=== PATIENT | male | born 1965 | race Caucasian/White ===

== ENCOUNTER 2019-02-27 04:43 | Inpatient (IN) ==
[2019-02-27] MEDS ORDERED: ONDANSETRON 4 MG/2 ML VIAL IV STA (05:22)
[2019-02-27] MEDS ORDERED: MORPHINE 4 MG/1 ML VIAL IV STA (05:22)
[2019-02-27] MEDS ORDERED: PANTOPRAZOLE 40 MG VIAL IV STA (05:22)
[2019-02-27] MEDS ORDERED: THIAMINE INJ 100 MG, FOLIC ACID INJ 1 MG, MAGNESIUM SULF INJ 2 GM, MULTIVITAMIN INJ 10 ... IV ONE (05:23)
[2019-02-27 05:43] LABS: Basophils % 0.2 % (0.0-0.8); Eosinophils % 0.6 % (0.00-10.9); Hematocrit 40.6 VOL% (42.0-52.0); Hemoglobin 13.9 GM/DL (14.0-18.0); Immature Granulocytes % 0.6 %; Immature Granulocytes Absolute 0.04 #; Lymphocytes # 0.5 10*3/uL (1.4-4.0); Lymphocytes % 7.8 % (21.2-54.2); Mean Corpuscular HGB Conc 34.2 GM/DL (32-36); Mean Corpuscular Volume 98.5 FL (87-102); Mean Platelet Volume 10.4 FL (9.6-12.0); Monocytes % 10.9 % (1.7-12.7); Neutrophils % 79.9 % (38.7-73.9); Platelet Count 101 T/CUMM (130-400); Red Blood Count 4.12 MC/CUMM (3.8-5.5); Red Cell Distribution Width 12.4 % (9.3-17.3); White Blood Count 6.4 T/CUMM (4-12)
[2019-02-27 05:58] LABS: Alanine Aminotransferase 64 U/L (16-61); Albumin 3.2 G/DL (3.4-5.0); Alkaline Phosphatase 133 U/L (45-117); Amylase 214 U/L (25-115); Aspartate Amino Transferase 46 U/L (0-37); Blood Urea Nitrogen 127 MG/DL (7-18); Calcium 9.2 MG/DL (8.5-10.1); Estimated Glom Filtration Rate 3 ML/MIN; Glucose 131 MG/DL (74-106); Osmolality,Calculated 299.1 MOS/KG (273-304)
[2019-02-27] MEDS ORDERED: HYDROmorphone 2 MG/1 ML VIAL IV STA (06:22)
[2019-02-27] MEDS ORDERED: HYDROmorphone 2 MG/1 ML VIAL IV ONE (08:30)
[2019-02-27] MEDS ORDERED: HYDROmorphone 2 MG/1 ML VIAL IM ONE (08:50)
[2019-02-27] MEDS ORDERED: PNEUMOCOCCAL VACCINE (23 VALENT) 0.5 ML VIAL IM ONE (08:57)
[2019-02-27] MEDS ORDERED: LORazepam 2 MG/1 ML VIAL IV ONE (10:00)
[2019-02-27 10:02] LABS: Apearance,Urine CLEAR (Clear); Bilirubin,Urine Negative (Negative); Blood, Urine Small mg/dL (Negative); Glucose,Urine (UA) 50 mg/dL (Negative); Ketones,Urine Negative (Negative); Mucus,Urine Occasional /LPF (Occasional); Nitrite,Urine Negative (Negative); Protein,Urine 100 MG/DL; RBC,Urine 8 /HPF (0-4); Urine Color Yellow (Yellow); Urine Specific Gravity 1.011 (1.001-1.035); Urine Urobilinogen < 2.0 EU/DL (0.2-1.0); WBC,Urine 4 /HPF (0-6)
[2019-02-27] MEDS ORDERED: HALOPERIDOL 5 MG/ML AMP IV PRN (11:14)
[2019-02-27] MEDS ORDERED: SODIUM CHLORIDE 0.9% 1,000 ML IV SCH (11:30)
[2019-02-27] MEDS: PANTOPRAZOLE 40 MG VIAL IV SCH ×2 (11:34→20:28)
[2019-02-27] MEDS: LORazepam 2 MG/1 ML VIAL IV PRN (11:34)
[2019-02-27] MEDS: chlordiazePOXIDE 25 MG CAPSULE PO PRN (11:34)
[2019-02-27] MEDS: SODIUM BICARB INJ 100 MEQ in DEXTROSE 5% NACL 0.45% 1,000 ML IV SCH (16:12)
[2019-02-27] MEDS: VALSARTAN 160 MG TABLET PO SCH (16:12)
[2019-02-27] MEDS: PARoxetine 20 MG TABLET PO SCH (16:13)
[2019-02-27] MEDS: LEVOTHYROXINE 50 MCG TABLET PO SCH (16:16)
[2019-02-27] MEDS: MORPHINE 4 MG/1 ML VIAL IV PRN ×2 (16:23→20:29)
[2019-02-27] MEDS: busPIRone 15 MG TABLET PO SCH (20:28)
[2019-02-27] MEDS ORDERED: hydrALAZINE 20 MG/1 ML VIAL IV PRN (21:31)
[2019-02-28] MEDS: SODIUM BICARB INJ 100 MEQ in DEXTROSE 5% NACL 0.45% 1,000 ML IV SCH ×3 (01:52→19:35)
[2019-02-28] MEDS: MORPHINE 4 MG/1 ML VIAL IV PRN ×2 (04:14→08:54)
[2019-02-28] MEDS: LEVOTHYROXINE 50 MCG TABLET PO SCH (05:33)
[2019-02-28 06:03] LABS: Basophils % 0.2 % (0.0-0.8); Eosinophils % 0.2 % (0.00-10.9); Hematocrit 38.1 VOL% (42.0-52.0); Hemoglobin 12.9 GM/DL (14.0-18.0); Immature Granulocytes Absolute 0.05 #; Lymphocytes # 0.3 10*3/uL (1.4-4.0); Lymphocytes % 4.9 % (21.2-54.2); Mean Corpuscular HGB Conc 33.9 GM/DL (32-36); Mean Corpuscular Volume 99.5 FL (87-102); Mean Platelet Volume 10.3 FL (9.6-12.0); Monocytes % 10.9 % (1.7-12.7); Neutrophils % 82.8 % (38.7-73.9); Platelet Count 75 T/CUMM (130-400); Red Blood Count 3.83 MC/CUMM (3.8-5.5); Red Cell Distribution Width 12.5 % (9.3-17.3); White Blood Count 5.1 T/CUMM (4-12)
[2019-02-28 06:28] LABS: Albumin 2.9 G/DL (3.4-5.0); Bilirubin,Total 0.6 MG/DL (0.2-1.0); Calcium 8.6 MG/DL (8.5-10.1); Osmolality,Calculated 298.9 MOS/KG (273-304); Total Protein 7.2 G/DL (6.4-8.3)
[2019-02-28 06:41] LABS: Anisocytosis 1+; Band Neutrophils 9 % (0-10); Lymphocytes 6 % (20-55); Macrocytosis 1+; Platelet Estimate Decreased; Segmented Neutrophils 69 % (50-85); Total Cells Counted 100
[2019-02-28] MEDS: PANTOPRAZOLE 40 MG VIAL IV SCH (08:54)
[2019-02-28] MEDS: PARoxetine 20 MG TABLET PO SCH (08:55)
[2019-02-28] MEDS: busPIRone 15 MG TABLET PO SCH ×2 (08:55→20:12)
[2019-02-28] MEDS: VALSARTAN 160 MG TABLET PO SCH (08:55)
[2019-02-28] MEDS: LORazepam 2 MG/1 ML VIAL IV PRN (10:57)
[2019-02-28 11:44] LABS: Amorphous Crystals,Urine Occasional /HPF (Few); Apearance,Urine CLEAR (Clear); Bilirubin,Urine Negative (Negative); Blood, Urine Small mg/dL (Negative); Glucose,Urine (UA) 50 mg/dL (Negative); Ketones,Urine Negative (Negative); Nitrite,Urine Negative (Negative); Protein,Urine 100 MG/DL; RBC,Urine 5 /HPF (0-4); Urine Color Yellow (Yellow); Urine Specific Gravity 1.014 (1.001-1.035); Urine Urobilinogen < 2.0 EU/DL (0.2-1.0); WBC,Urine 4 /HPF (0-6)
[2019-02-28] MEDS: MULTIVITAMIN (CENTRUM) TABLET PO SCH (12:51)
[2019-02-28] MEDS: THIAMINE 200 MG/2 ML VIAL IV SCH ×2 (15:38→21:31)
[2019-02-28] MEDS ORDERED: CALCIUM GLUCONATE 1,000 MG in SODIUM CHLORIDE 0.9% 100 ML IV ONE (17:51)
[2019-03-01] MEDS: SODIUM BICARB INJ 100 MEQ in DEXTROSE 5% NACL 0.45% 1,000 ML IV SCH ×3 (04:49→22:58)
[2019-03-01] MEDS: LEVOTHYROXINE 50 MCG TABLET PO SCH (05:23)
[2019-03-01] MEDS: THIAMINE 200 MG/2 ML VIAL IV SCH ×3 (05:23→22:51)
[2019-03-01] MEDS: MORPHINE 4 MG/1 ML VIAL IV PRN (05:34)
[2019-03-01] MEDS: LORazepam 2 MG/1 ML VIAL IV PRN ×6 (07:10→20:07)
[2019-03-01] MEDS: busPIRone 15 MG TABLET PO SCH ×2 (08:09→20:07)
[2019-03-01] MEDS: chlordiazePOXIDE 25 MG CAPSULE PO PRN ×2 (08:09→20:07)
[2019-03-01] MEDS: MULTIVITAMIN (CENTRUM) TABLET PO SCH (08:09)
[2019-03-01] MEDS: PARoxetine 20 MG TABLET PO SCH (08:09)
[2019-03-01] MEDS: VALSARTAN 160 MG TABLET PO SCH (08:09)
[2019-03-01] MEDS: diphenhydrAMINE 50 MG/1 ML VIAL IV PRN (21:47)
[2019-03-01] MEDS ORDERED: DILTIAZEM 50 MG/10 ML VIAL IV ONE (22:29)
[2019-03-01] MEDS: dilTIAZem Drip 125 MG/125 ML PREMIX IV SCH (22:45)
[2019-03-02] MEDS ORDERED: ASPIRIN 325 MG TABLET ONE (00:39)
[2019-03-02] MEDS: ASPIRIN 325 MG TABLET PO SCH ×2 (00:45→09:13)
[2019-03-02] MEDS: LORazepam 2 MG/1 ML VIAL IV PRN ×4 (04:30→09:42)
[2019-03-02 05:54] LABS: Basophils % 0.4 % (0.0-0.8); Eosinophils # 0.1 10*3/uL (0.0-0.87); Eosinophils % 2.6 % (0.00-10.9); Hematocrit 33.8 VOL% (42.0-52.0); Hemoglobin 11.9 GM/DL (14.0-18.0); Immature Granulocytes % 0.6 %; Immature Granulocytes Absolute 0.03 #; Lymphocytes # 0.5 10*3/uL (1.4-4.0); Lymphocytes % 10.2 % (21.2-54.2); Mean Corpuscular HGB Conc 35.2 GM/DL (32-36); Mean Corpuscular Volume 96.6 FL (87-102); Mean Platelet Volume 10.6 FL (9.6-12.0); Monocytes % 12.6 % (1.7-12.7); Neutrophils % 73.6 % (38.7-73.9); Platelet Count 75 T/CUMM (130-400); Red Cell Distribution Width 12.8 % (9.3-17.3); White Blood Count 4.6 T/CUMM (4-12)
[2019-03-02] MEDS: LEVOTHYROXINE 50 MCG TABLET PO SCH (06:09)
[2019-03-02 06:13] LABS: Albumin 2.3 G/DL (3.4-5.0); Bilirubin,Total 0.9 MG/DL (0.2-1.0); Calcium 7.6 MG/DL (8.5-10.1); Osmolality,Calculated 304.4 MOS/KG (273-304); Total Protein 6.5 G/DL (6.4-8.3)
[2019-03-02 06:22] LABS: Atypical Lymphocytes Few; Band Neutrophils 2 % (0-10); Eosinophils 5 % (0-10); Lymphocytes 15 % (20-55); Platelet Estimate Decreased; Segmented Neutrophils 69 % (50-85); Total Cells Counted 100
[2019-03-02] MEDS: THIAMINE 200 MG/2 ML VIAL IV SCH ×3 (06:46→22:35)
[2019-03-02] MEDS: SODIUM BICARB INJ 100 MEQ in DEXTROSE 5% NACL 0.45% 1,000 ML IV SCH ×2 (06:50→07:59)
[2019-03-02] MEDS: MULTIVITAMIN (CENTRUM) TABLET PO SCH (08:00)
[2019-03-02] MEDS: PARoxetine 20 MG TABLET PO SCH (08:00)
[2019-03-02] MEDS: chlordiazePOXIDE 25 MG CAPSULE PO PRN ×2 (08:00→16:16)
[2019-03-02] MEDS: busPIRone 15 MG TABLET PO SCH ×2 (08:00→21:45)
[2019-03-02] MEDS: VALSARTAN 160 MG TABLET PO SCH (08:00)
[2019-03-02] MEDS ORDERED: METOPROLOL TARTRATE 50 MG TABLET PO SCH (09:00)
[2019-03-02] MEDS: HALOPERIDOL 5 MG/ML AMP IV PRN (11:07)
[2019-03-02] MEDS: METOPROLOL TARTRATE 5 MG/5 ML VIAL IV SCH ×2 (12:20→17:59)
[2019-03-02] MEDS: SODIUM BICARB INJ 50 MEQ in DEXTROSE 5% NACL 0.9% 1,000 ML IV SCH ×2 (16:06→22:42)
[2019-03-02 20:51] LABS: ABG Base Excess -0.9 MMOL/L (-2.5-2.5); ABG HCO3 23.6 MMOL/L (20-26); ABG Oxygen Saturation 94.9 % (95-100); ABG PCO2 53.6 MM HG (35-48); ABG PH 7.302 (7.35-7.45); ABG PO2 78.6 MM HG (80-95); ABG TCO2 23.7 MMOL/L (23-27); Allen Test Positive; Pt O2 Delivery Device BIPAP
[2019-03-02] MEDS: dilTIAZem Drip 125 MG/125 ML PREMIX IV SCH (22:42)
[2019-03-03] MEDS: METOPROLOL TARTRATE 5 MG/5 ML VIAL IV SCH ×5 (00:05→23:32)
[2019-03-03] MEDS: LORazepam 2 MG/1 ML VIAL IV PRN ×7 (02:12→23:55)
[2019-03-03] MEDS: SODIUM BICARB INJ 50 MEQ in DEXTROSE 5% NACL 0.9% 1,000 ML IV SCH ×4 (03:15→19:56)
[2019-03-03 05:01] LABS: Basophils % 0.5 % (0.0-0.8); Eosinophils % 0.3 % (0.00-10.9); Hematocrit 29.6 VOL% (42.0-52.0); Hemoglobin 10.2 GM/DL (14.0-18.0); Immature Granulocytes % 0.3 %; Immature Granulocytes Absolute 0.01 #; Lymphocytes # 0.2 10*3/uL (1.4-4.0); Mean Corpuscular HGB Conc 34.5 GM/DL (32-36); Mean Platelet Volume 10.1 FL (9.6-12.0); Neutrophils % 82.9 % (38.7-73.9); Platelet Count 83 T/CUMM (130-400); Red Blood Count 3.05 MC/CUMM (3.8-5.5); Red Cell Distribution Width 12.5 % (9.3-17.3); White Blood Count 3.8 T/CUMM (4-12)
[2019-03-03 05:33] LABS: Albumin 1.9 G/DL (3.4-5.0); Bilirubin,Total 0.4 MG/DL (0.2-1.0); Calcium 7.3 MG/DL (8.5-10.1); Total Protein 5.6 G/DL (6.4-8.3)
[2019-03-03 05:38] LABS: Band Neutrophils 9 % (0-10); Lymphocytes 5 % (20-55); Segmented Neutrophils 73 % (50-85); Total Cells Counted 100
[2019-03-03 05:39] LABS: Hypochromasia Slight; Macrocytosis 1+; Target Cells Slight
[2019-03-03] MEDS: LEVOTHYROXINE 50 MCG TABLET PO SCH (05:57)
[2019-03-03] MEDS: THIAMINE 200 MG/2 ML VIAL IV SCH ×3 (06:20→23:30)
[2019-03-03] MEDS: HALOPERIDOL 5 MG/ML AMP IV PRN ×4 (06:39→20:41)
[2019-03-03] MEDS: busPIRone 15 MG TABLET PO SCH ×3 (09:05→20:43)
[2019-03-03] MEDS: MULTIVITAMIN (CENTRUM) TABLET PO SCH ×2 (09:05→09:10)
[2019-03-03] MEDS: ASPIRIN 325 MG TABLET PO SCH ×2 (09:05→09:10)
[2019-03-03] MEDS: PARoxetine 20 MG TABLET PO SCH ×2 (09:05→09:10)
[2019-03-03] MEDS ORDERED: ceFAZolin 1,000 MG in SYRINGE 1 EACH IV ONE (15:16)
[2019-03-03 17:12] LABS: Hepatitis B Core IgM Quant 0.08 Index; Hepatitis B Surface Ag Quant < 0.10 Index; Hepatitis B Surface Ag Result Negative (Negative); Hepatitis C Virus Ab Quant 5.92 Index
[2019-03-03 17:18] LABS: Hepatitis C Virus Ab Result Positive (Negative)
[2019-03-03] MEDS: diphenhydrAMINE 50 MG/1 ML VIAL IV PRN (20:36)
[2019-03-03] MEDS: dilTIAZem Drip 125 MG/125 ML PREMIX IV SCH (23:38)
[2019-03-04] MEDS: LORazepam 2 MG/1 ML VIAL IV PRN ×2 (02:50→08:32)
[2019-03-04] MEDS: SODIUM BICARB INJ 50 MEQ in DEXTROSE 5% NACL 0.9% 1,000 ML IV SCH ×3 (03:02→15:24)
[2019-03-04 05:35] LABS: Basophils # 0.1 10*3/uL (0.0-0.2); Basophils % 1.2 % (0.0-0.8); Eosinophils % 0.9 % (0.00-10.9); Hematocrit 32.8 VOL% (42.0-52.0); Hemoglobin 11.1 GM/DL (14.0-18.0); Immature Granulocytes % 0.9 %; Immature Granulocytes Absolute 0.04 #; Lymphocytes # 0.2 10*3/uL (1.4-4.0); Lymphocytes % 5.6 % (21.2-54.2); Mean Corpuscular HGB Conc 33.8 GM/DL (32-36); Mean Platelet Volume 9.9 FL (9.6-12.0); Monocytes % 6.1 % (1.7-12.7); Neutrophils % 85.3 % (38.7-73.9); Platelet Count 101 T/CUMM (130-400); Red Blood Count 3.28 MC/CUMM (3.8-5.5); White Blood Count 4.3 T/CUMM (4-12)
[2019-03-04 05:58] LABS: Band Neutrophils 8 % (0-10); Eosinophils 2 % (0-10); Hypochromasia 1+; Lymphocytes 7 % (20-55); Macrocytosis 1+; Metamyelocytes 1 %; Segmented Neutrophils 76 % (50-85); Total Cells Counted 100
[2019-03-04 05:59] LABS: Platelet Estimate Decreased
[2019-03-04] MEDS ORDERED: ceFAZolin 1,000 MG in SYRINGE 1 EACH IV ONE (06:00)
[2019-03-04] MEDS: METOPROLOL TARTRATE 5 MG/5 ML VIAL IV SCH ×3 (06:07→17:00)
[2019-03-04] MEDS: THIAMINE 200 MG/2 ML VIAL IV SCH ×3 (06:11→21:20)
[2019-03-04] MEDS: LEVOTHYROXINE 50 MCG TABLET PO SCH (06:11)
[2019-03-04 06:17] LABS: Calcium 7.7 MG/DL (8.5-10.1); Osmolality,Calculated 327.1 MOS/KG (273-304)
[2019-03-04] MEDS ORDERED: ALBUTEROL/IPRATROPIUM 3 ML NEB RESP TX ONE (08:43)
[2019-03-04] MEDS ORDERED: BUPIVACAINE MPF 0.25% 30 ML VIAL ONE (09:23)
[2019-03-04] MEDS ORDERED: LIDOCAINE 1%/EPI INJ 20 ML VIAL ONE (09:23)
[2019-03-04] MEDS ORDERED: propofoL 200 MG/20 ML VIAL IV ONE (10:49)
[2019-03-04] MEDS ORDERED: SUCCINYLCHOLINE 200 MG/10 ML VIAL ONE (10:49)
[2019-03-04] MEDS ORDERED: ROCURONIUM 100 MG/10 ML VIAL IV ONE (10:49)
[2019-03-04] MEDS ORDERED: ETOMIDATE 40 MG/20 ML VIAL IV ONE (10:49)
[2019-03-04] MEDS ORDERED: SEVOFLURANE 1 UNIT/15 MINUTE INH ONE (10:49)
[2019-03-04 11:16] LABS: ABG Base Excess 1.3 MMOL/L (-2.5-2.5); ABG HCO3 25.5 MMOL/L (20-26); ABG Oxygen Saturation 94.4 % (95-100); ABG PCO2 48.6 MM HG (35-48); ABG PH 7.359 (7.35-7.45); ABG PO2 75.3 MM HG (80-95); ABG TCO2 24.8 MMOL/L (23-27); Allen Test Positive; Pt O2 Delivery Device Ventilator
[2019-03-04] MEDS ORDERED: NOREPINEPHRINE 8 MG in SODIUM CHLORIDE 0.9% 242 ML IV PRN (12:08)
[2019-03-04 12:38] LABS: ABG Base Excess 2.5 MMOL/L (-2.5-2.5); ABG HCO3 27.6 MMOL/L (20-26); ABG Oxygen Saturation 95.9 % (95-100); ABG PCO2 44.8 MM HG (35-48); ABG PH 7.407 (7.35-7.45); ABG PO2 87.4 MM HG (80-95); ABG TCO2 28.9 MMOL/L (23-27); Allen Test Positive; Pt O2 Delivery Device Ventilator
[2019-03-04] MEDS: busPIRone 15 MG TABLET PO SCH ×2 (12:44→21:20)
[2019-03-04] MEDS: PARoxetine 20 MG TABLET PO SCH (12:44)
[2019-03-04] MEDS: MULTIVITAMIN (CENTRUM) TABLET PO SCH (12:44)
[2019-03-04] MEDS: ASPIRIN 325 MG TABLET PO SCH (12:44)
[2019-03-04] MEDS: ALBUTEROL/IPRATROPIUM 3 ML NEB RESP TX SCH ×2 (13:50→19:31)
[2019-03-04] MEDS ORDERED: HEPARIN 10,000 UNIT/10 ML VIAL IV SCH (16:30)
[2019-03-04] MEDS: dilTIAZem Drip 125 MG/125 ML PREMIX IV SCH (22:33)
[2019-03-05] MEDS: METOPROLOL TARTRATE 5 MG/5 ML VIAL IV SCH ×4 (00:09→18:11)
[2019-03-05] MEDS: ALBUTEROL/IPRATROPIUM 3 ML NEB RESP TX SCH ×4 (00:20→19:15)
[2019-03-05] MEDS: SODIUM BICARB INJ 50 MEQ in DEXTROSE 5% NACL 0.9% 1,000 ML IV SCH ×3 (01:30→23:00)
[2019-03-05 04:19] LABS: ABG Base Excess 4.5 MMOL/L (-2.5-2.5); ABG HCO3 28.5 MMOL/L (20-26); ABG Oxygen Saturation 99.8 % (95-100); ABG PCO2 41.1 MM HG (35-48); ABG PH 7.454 (7.35-7.45); ABG TCO2 26.5 MMOL/L (23-27); Allen Test Positive; Pt O2 Delivery Device Ventilator
[2019-03-05 04:32] LABS: Basophils % 0.2 % (0.0-0.8); Eosinophils # 0.1 10*3/uL (0.0-0.87); Eosinophils % 1.5 % (0.00-10.9); Hematocrit 25.5 VOL% (42.0-52.0); Hemoglobin 8.7 GM/DL (14.0-18.0); Immature Granulocytes % 0.9 %; Immature Granulocytes Absolute 0.07 #; Lymphocytes # 0.5 10*3/uL (1.4-4.0); Lymphocytes % 6.1 % (21.2-54.2); Mean Corpuscular HGB Conc 34.1 GM/DL (32-36); Mean Corpuscular Volume 99.6 FL (87-102); Mean Platelet Volume 10.5 FL (9.6-12.0); Monocytes % 6.6 % (1.7-12.7); Neutrophils % 84.7 % (38.7-73.9); Platelet Count 106 T/CUMM (130-400); Red Blood Count 2.56 MC/CUMM (3.8-5.5); Red Cell Distribution Width 13.2 % (9.3-17.3); White Blood Count 8.1 T/CUMM (4-12)
[2019-03-05 04:53] LABS: Band Neutrophils 1 % (0-10); Eosinophils 2 % (0-10); Hypochromasia 1+; Lymphocytes 7 % (20-55); Platelet Estimate Decreased; Segmented Neutrophils 85 % (50-85); Total Cells Counted 100
[2019-03-05 04:54] LABS: Macrocytosis Slight
[2019-03-05 05:03] LABS: Osmolality,Calculated 322.7 MOS/KG (273-304)
[2019-03-05] MEDS: THIAMINE 200 MG/2 ML VIAL IV SCH ×3 (06:16→22:13)
[2019-03-05] MEDS: LEVOTHYROXINE 50 MCG TABLET PO SCH (06:16)
[2019-03-05] MEDS: busPIRone 15 MG TABLET PO SCH ×2 (08:25→20:20)
[2019-03-05] MEDS: ASPIRIN 325 MG TABLET PO SCH (08:25)
[2019-03-05] MEDS: PARoxetine 20 MG TABLET PO SCH (08:25)
[2019-03-05] MEDS: MULTIVITAMIN LIQUID (CENTRUM) 60 ML BOTTLE NG SCH (10:00)
[2019-03-05 10:41] LABS: ABG Base Excess 4.4 MMOL/L (-2.5-2.5); ABG HCO3 28.4 MMOL/L (20-26); ABG Oxygen Saturation 95.6 % (95-100); ABG PCO2 45.9 MM HG (35-48); ABG PH 7.417 (7.35-7.45); ABG TCO2 27.3 MMOL/L (23-27); Allen Test Positive; Pt O2 Delivery Device Ventilator
[2019-03-05] MEDS ORDERED: GLUCAGON 1 MG VIAL IM PRN (14:20)
[2019-03-05] MEDS ORDERED: DEXTROSE 10% 250 ML BAG IV PRN (14:24)
[2019-03-05] MEDS: dilTIAZem Drip 125 MG/125 ML PREMIX IV SCH (23:31)
[2019-03-06] MEDS: ALBUTEROL/IPRATROPIUM 3 ML NEB RESP TX SCH ×4 (00:10→20:00)
[2019-03-06] MEDS: METOPROLOL TARTRATE 5 MG/5 ML VIAL IV SCH ×5 (01:49→23:27)
[2019-03-06 03:48] LABS: ABG Base Excess 4.3 MMOL/L (-2.5-2.5); ABG HCO3 28.6 MMOL/L (20-26); ABG Oxygen Saturation 96.7 % (95-100); ABG PCO2 41.4 MM HG (35-48); ABG PH 7.457 (7.35-7.45); ABG PO2 90.9 MM HG (80-95); ABG TCO2 29.9 MMOL/L (23-27); Allen Test Positive; Pt O2 Delivery Device Ventilator
[2019-03-06 04:42] LABS: Basophils % 0.3 % (0.0-0.8); Eosinophils # 0.2 10*3/uL (0.0-0.87); Eosinophils % 1.6 % (0.00-10.9); Hemoglobin 8.9 GM/DL (14.0-18.0); Immature Granulocytes % 1.3 %; Immature Granulocytes Absolute 0.12 #; Lymphocytes # 0.6 10*3/uL (1.4-4.0); Lymphocytes % 6.1 % (21.2-54.2); Mean Corpuscular Volume 100.7 FL (87-102); Mean Platelet Volume 10.4 FL (9.6-12.0); Monocytes % 5.8 % (1.7-12.7); Neutrophils % 84.9 % (38.7-73.9); Platelet Count 107 T/CUMM (130-400); Red Blood Count 2.68 MC/CUMM (3.8-5.5); Red Cell Distribution Width 13.2 % (9.3-17.3); White Blood Count 9.3 T/CUMM (4-12)
[2019-03-06 05:17] LABS: Calcium 8.1 MG/DL (8.5-10.1); Osmolality,Calculated 309.7 MOS/KG (273-304)
[2019-03-06] MEDS: LEVOTHYROXINE 50 MCG TABLET PO SCH (05:49)
[2019-03-06 05:53] LABS: Band Neutrophils 2 % (0-10); Eosinophils 2 % (0-10); Lymphocytes 3 % (20-55); Segmented Neutrophils 88 % (50-85)
[2019-03-06 05:54] LABS: Hypochromasia Slight; Platelet Estimate Decreased; Target Cells 1+
[2019-03-06 05:56] LABS: Total Cells Counted 100
[2019-03-06] MEDS: THIAMINE 200 MG/2 ML VIAL IV SCH ×3 (07:15→21:16)
[2019-03-06] MEDS: ASPIRIN 325 MG TABLET PO SCH (08:09)
[2019-03-06] MEDS: MULTIVITAMIN LIQUID (CENTRUM) 60 ML BOTTLE NG SCH (08:09)
[2019-03-06] MEDS: busPIRone 15 MG TABLET PO SCH ×2 (08:09→20:08)
[2019-03-06] MEDS: dilTIAZem Drip 125 MG/125 ML PREMIX IV SCH (23:27)
[2019-03-07] MEDS: ALBUTEROL/IPRATROPIUM 3 ML NEB RESP TX SCH ×4 (01:05→19:55)
[2019-03-07 03:14] LABS: ABG Base Excess 3.5 MMOL/L (-2.5-2.5); ABG HCO3 27.6 MMOL/L (20-26); ABG Oxygen Saturation 98.6 % (95-100); ABG PCO2 49.6 MM HG (35-48); Allen Test Positive; Pt O2 Delivery Device Ventilator
[2019-03-07] MEDS: METOPROLOL TARTRATE 5 MG/5 ML VIAL IV SCH ×3 (05:08→17:25)
[2019-03-07 05:10] LABS: Basophils % 0.3 % (0.0-0.8); Eosinophils # 0.2 10*3/uL (0.0-0.87); Eosinophils % 1.5 % (0.00-10.9); Hemoglobin 9.1 GM/DL (14.0-18.0); Lymphocytes # 0.6 10*3/uL (1.4-4.0); Mean Corpuscular HGB Conc 32.5 GM/DL (32-36); Mean Corpuscular Volume 102.2 FL (87-102); Mean Platelet Volume 10.3 FL (9.6-12.0); Neutrophils % 83.2 % (38.7-73.9); Platelet Count 112 T/CUMM (130-400); Red Blood Count 2.74 MC/CUMM (3.8-5.5); Red Cell Distribution Width 13.4 % (9.3-17.3); White Blood Count 9.9 T/CUMM (4-12)
[2019-03-07] MEDS: LEVOTHYROXINE 50 MCG TABLET PO SCH (05:13)
[2019-03-07] MEDS: THIAMINE 200 MG/2 ML VIAL IV SCH ×3 (05:13→21:35)
[2019-03-07 06:00] LABS: Calcium 8.5 MG/DL (8.5-10.1); Osmolality,Calculated 298.1 MOS/KG (273-304)
[2019-03-07] MEDS: MULTIVITAMIN LIQUID (CENTRUM) 60 ML BOTTLE NG SCH (10:04)
[2019-03-07] MEDS: busPIRone 15 MG TABLET PO SCH ×2 (10:04→20:32)
[2019-03-07] MEDS: ASPIRIN 325 MG TABLET PO SCH (10:04)
[2019-03-07] MEDS: MEROPENEM 500 MG in SODIUM CHLORIDE 0.9% 100 ML IV SCH (13:40)
[2019-03-07] MEDS: LEVOFLOXACIN INJ 500 MG in PREMIX 1 EACH IV SCH (13:43)
[2019-03-07] MEDS: dilTIAZem Drip 125 MG/125 ML PREMIX IV SCH (22:52)
[2019-03-08] MEDS: METOPROLOL TARTRATE 5 MG/5 ML VIAL IV SCH ×5 (00:12→23:54)
[2019-03-08] MEDS: ALBUTEROL/IPRATROPIUM 3 ML NEB RESP TX SCH ×4 (01:00→20:20)
[2019-03-08 04:06] LABS: ABG Base Excess 1.5 MMOL/L (-2.5-2.5); ABG HCO3 25.8 MMOL/L (20-26); ABG Oxygen Saturation 99.8 % (95-100); ABG PCO2 40.1 MM HG (35-48); ABG TCO2 23.8 MMOL/L (23-27); Allen Test Positive; Pt O2 Delivery Device Ventilator
[2019-03-08 04:25] LABS: Basophils % 0.2 % (0.0-0.8); Eosinophils # 0.2 10*3/uL (0.0-0.87); Eosinophils % 1.7 % (0.00-10.9); Hematocrit 27.4 VOL% (42.0-52.0); Immature Granulocytes % 2.1 %; Lymphocytes # 0.6 10*3/uL (1.4-4.0); Lymphocytes % 6.1 % (21.2-54.2); Mean Corpuscular HGB Conc 32.8 GM/DL (32-36); Mean Corpuscular Volume 101.1 FL (87-102); Mean Platelet Volume 10.6 FL (9.6-12.0); Monocytes % 6.9 % (1.7-12.7); Platelet Count 124 T/CUMM (130-400); Red Blood Count 2.71 MC/CUMM (3.8-5.5); Red Cell Distribution Width 13.2 % (9.3-17.3); White Blood Count 9.3 T/CUMM (4-12)
[2019-03-08 04:46] LABS: Prealbumin 8.5 MG/DL (20-40)
[2019-03-08 04:57] LABS: Calcium 8.8 MG/DL (8.5-10.1); Osmolality,Calculated 300.4 MOS/KG (273-304)
[2019-03-08 05:05] LABS: Hypochromasia 1+; Platelet Estimate Adequate
[2019-03-08] MEDS: LEVOTHYROXINE 50 MCG TABLET PO SCH (06:14)
[2019-03-08] MEDS: THIAMINE 200 MG/2 ML VIAL IV SCH ×3 (06:26→21:45)
[2019-03-08] MEDS: ASPIRIN 325 MG TABLET PO SCH (08:48)
[2019-03-08] MEDS: busPIRone 15 MG TABLET PO SCH ×2 (08:48→21:45)
[2019-03-08] MEDS: MULTIVITAMIN LIQUID (CENTRUM) 60 ML BOTTLE NG SCH (08:48)
[2019-03-08] MEDS: methylPREDNISolone SOD SUC 40 MG/1 ML VIAL IV SCH ×2 (10:40→18:17)
[2019-03-08] MEDS: MEROPENEM 500 MG in SODIUM CHLORIDE 0.9% 100 ML IV SCH (13:22)
[2019-03-08] MEDS: dilTIAZem Drip 125 MG/125 ML PREMIX IV SCH (23:04)
[2019-03-09] MEDS: ALBUTEROL/IPRATROPIUM 3 ML NEB RESP TX SCH ×4 (02:00→19:50)
[2019-03-09] MEDS: methylPREDNISolone SOD SUC 40 MG/1 ML VIAL IV SCH ×3 (03:01→18:30)
[2019-03-09 03:33] LABS: ABG Base Excess 1.3 MMOL/L (-2.5-2.5); ABG HCO3 25.5 MMOL/L (20-26); ABG Oxygen Saturation 98.3 % (95-100); ABG PH 7.425 (7.35-7.45); ABG TCO2 22.7 MMOL/L (23-27); Allen Test Positive; Pt O2 Delivery Device Ventilator
[2019-03-09] MEDS: LEVOTHYROXINE 50 MCG TABLET PO SCH (05:13)
[2019-03-09] MEDS: THIAMINE 200 MG/2 ML VIAL IV SCH ×3 (05:13→21:03)
[2019-03-09] MEDS: METOPROLOL TARTRATE 5 MG/5 ML VIAL IV SCH ×3 (05:13→18:30)
[2019-03-09 08:06] LABS: Calcium 8.6 MG/DL (8.5-10.1); Osmolality,Calculated 291.1 MOS/KG (273-304)
[2019-03-09] MEDS: ASPIRIN 325 MG TABLET PO SCH (09:45)
[2019-03-09] MEDS: MULTIVITAMIN LIQUID (CENTRUM) 60 ML BOTTLE NG SCH (09:45)
[2019-03-09] MEDS: busPIRone 15 MG TABLET PO SCH ×2 (09:45→21:03)
[2019-03-09] MEDS: MEROPENEM 500 MG in SODIUM CHLORIDE 0.9% 100 ML IV SCH (14:38)
[2019-03-09] MEDS: LEVOFLOXACIN INJ 500 MG in PREMIX 1 EACH IV SCH (14:38)
[2019-03-09] MEDS: dilTIAZem Drip 125 MG/125 ML PREMIX IV SCH (21:55)
[2019-03-10] MEDS: METOPROLOL TARTRATE 5 MG/5 ML VIAL IV SCH ×4 (00:30→19:00)
[2019-03-10] MEDS: ALBUTEROL/IPRATROPIUM 3 ML NEB RESP TX SCH ×4 (00:48→19:17)
[2019-03-10] MEDS: methylPREDNISolone SOD SUC 40 MG/1 ML VIAL IV SCH ×2 (02:58→09:43)
[2019-03-10 03:32] LABS: Basophils % 0.4 % (0.0-0.8); Eosinophils % 0.2 % (0.00-10.9); Hematocrit 29.4 VOL% (42.0-52.0); Hemoglobin 9.9 GM/DL (14.0-18.0); Immature Granulocytes % 4.2 %; Immature Granulocytes Absolute 0.34 #; Lymphocytes # 0.7 10*3/uL (1.4-4.0); Lymphocytes % 8.3 % (21.2-54.2); Mean Corpuscular HGB Conc 33.7 GM/DL (32-36); Mean Corpuscular Volume 97.7 FL (87-102); Mean Platelet Volume 10.3 FL (9.6-12.0); Neutrophils % 77.9 % (38.7-73.9); Platelet Count 201 T/CUMM (130-400); Red Blood Count 3.01 MC/CUMM (3.8-5.5); Red Cell Distribution Width 12.7 % (9.3-17.3); White Blood Count 8.1 T/CUMM (4-12)
[2019-03-10 03:40] LABS: Calcium 8.6 MG/DL (8.5-10.1); Osmolality,Calculated 300.2 MOS/KG (273-304)
[2019-03-10 04:38] LABS: Allen Test Positive
[2019-03-10 04:41] LABS: ABG Base Excess -1.2 MMOL/L (-2.5-2.5); ABG HCO3 23.4 MMOL/L (20-26); ABG Oxygen Saturation 98.6 % (95-100); ABG PCO2 30.2 MM HG (35-48); ABG PH 7.467 (7.35-7.45)
[2019-03-10] MEDS: THIAMINE 200 MG/2 ML VIAL IV SCH ×3 (05:44→21:10)
[2019-03-10] MEDS: LEVOTHYROXINE 50 MCG TABLET PO SCH (05:45)
[2019-03-10] MEDS ORDERED: ONDANSETRON 4 MG/2 ML VIAL IV PRN (07:56)
[2019-03-10] MEDS: MULTIVITAMIN LIQUID (CENTRUM) 60 ML BOTTLE NG SCH (09:42)
[2019-03-10] MEDS: ASPIRIN 325 MG TABLET PO SCH (09:42)
[2019-03-10] MEDS: busPIRone 15 MG TABLET PO SCH ×2 (09:42→21:07)
[2019-03-10] MEDS: BISMUTH SUBSALICYLATE 30 ML/524 MG 240 ML/BOTTLE PO PRN (21:02)
[2019-03-10] MEDS: PANTOPRAZOLE 40 MG TABLET PO SCH (21:07)
[2019-03-11] MEDS: ALBUTEROL/IPRATROPIUM 3 ML NEB RESP TX SCH ×4 (00:36→19:46)
[2019-03-11] MEDS: METOPROLOL TARTRATE 5 MG/5 ML VIAL IV SCH ×4 (01:04→17:18)
[2019-03-11] MEDS: BISMUTH SUBSALICYLATE 30 ML/524 MG 240 ML/BOTTLE PO PRN (02:36)
[2019-03-11] MEDS: MORPHINE 4 MG/1 ML VIAL IV PRN ×5 (03:19→21:21)
[2019-03-11 06:31] LABS: Calcium 8.2 MG/DL (8.5-10.1)
[2019-03-11] MEDS: LEVOTHYROXINE 50 MCG TABLET PO SCH (08:21)
[2019-03-11] MEDS: THIAMINE 200 MG/2 ML VIAL IV SCH ×3 (08:21→21:14)
[2019-03-11] MEDS: PANTOPRAZOLE 40 MG TABLET PO SCH ×2 (08:51→21:18)
[2019-03-11] MEDS: busPIRone 15 MG TABLET PO SCH ×2 (08:51→21:18)
[2019-03-11] MEDS: predniSONE 20 MG TABLET PO SCH (08:51)
[2019-03-11] MEDS: ASPIRIN 325 MG TABLET PO SCH (08:51)
[2019-03-11] MEDS: MULTIVITAMIN (CENTRUM) TABLET PO SCH (08:54)
[2019-03-11] MEDS: LEVOFLOXACIN INJ 500 MG in PREMIX 1 EACH IV SCH (13:27)
[2019-03-11] MEDS: diphenhydrAMINE 50 MG/1 ML VIAL IV PRN (21:18)
[2019-03-12] MEDS: ALBUTEROL/IPRATROPIUM 3 ML NEB RESP TX SCH ×4 (00:09→20:06)
[2019-03-12] MEDS: METOPROLOL TARTRATE 5 MG/5 ML VIAL IV SCH ×2 (00:57→05:05)
[2019-03-12] MEDS: MORPHINE 4 MG/1 ML VIAL IV PRN ×2 (01:22→05:43)
[2019-03-12 05:08] LABS: Basophils % 0.5 % (0.0-0.8); Eosinophils # 0.1 10*3/uL (0.0-0.87); Eosinophils % 1.5 % (0.00-10.9); Hematocrit 28.1 VOL% (42.0-52.0); Hemoglobin 9.5 GM/DL (14.0-18.0); Immature Granulocytes % 4.2 %; Immature Granulocytes Absolute 0.33 #; Lymphocytes # 1.2 10*3/uL (1.4-4.0); Lymphocytes % 15.6 % (21.2-54.2); Mean Corpuscular HGB Conc 33.8 GM/DL (32-36); Mean Corpuscular Volume 98.6 FL (87-102); Mean Platelet Volume 10.2 FL (9.6-12.0); Monocytes % 10.7 % (1.7-12.7); Neutrophils % 67.5 % (38.7-73.9); Platelet Count 250 T/CUMM (130-400); Red Blood Count 2.85 MC/CUMM (3.8-5.5); Red Cell Distribution Width 12.3 % (9.3-17.3); White Blood Count 7.8 T/CUMM (4-12)
[2019-03-12 05:34] LABS: Albumin 2.2 G/DL (3.4-5.0); Bilirubin,Total 0.9 MG/DL (0.2-1.0); Calcium 8.3 MG/DL (8.5-10.1); Osmolality,Calculated 288.5 MOS/KG (273-304); Total Protein 6.6 G/DL (6.4-8.3)
[2019-03-12] MEDS: THIAMINE 200 MG/2 ML VIAL IV SCH (05:37)
[2019-03-12] MEDS: LEVOTHYROXINE 50 MCG TABLET PO SCH (05:37)
[2019-03-12 05:43] LABS: Albumin 2.1 G/DL (3.4-5.0); Bilirubin,Direct 0.33 MG/DL (0.0-0.20); Bilirubin,Indirect 0.3 MG/DL (0.0-1.0); Bilirubin,Total 0.6 MG/DL (0.2-1.0); Total Protein 6.6 G/DL (6.4-8.3)
[2019-03-12] MEDS: HYDROmorphone 2 MG/1 ML VIAL IV PRN ×5 (08:24→23:21)
[2019-03-12] MEDS: predniSONE 20 MG TABLET PO SCH (14:01)
[2019-03-12] MEDS: busPIRone 15 MG TABLET PO SCH ×2 (14:01→20:15)
[2019-03-12] MEDS: THIAMINE 100 MG TABLET PO SCH (14:01)
[2019-03-12] MEDS: PARoxetine 20 MG TABLET PO SCH (14:01)
[2019-03-12] MEDS: OMEGA 3 ACID ETHYL ESTERS 1 GM CAPSULE PO SCH ×2 (14:01→20:15)
[2019-03-12] MEDS: ASPIRIN 325 MG TABLET PO SCH (14:01)
[2019-03-12] MEDS: MULTIVITAMIN (CENTRUM) TABLET PO SCH (14:01)
[2019-03-12] MEDS: PANTOPRAZOLE 40 MG TABLET PO SCH ×2 (14:01→20:15)
[2019-03-12] MEDS: LACTATED RINGERS 1,000 ML IV SCH ×2 (15:27→17:08)
[2019-03-12] MEDS: EZETIMIBE 10 MG TABLET PO SCH (20:15)
[2019-03-12] MEDS: METOPROLOL TARTRATE 25 MG TABLET PO SCH (20:15)
[2019-03-13] MEDS: ALBUTEROL/IPRATROPIUM 3 ML NEB RESP TX SCH ×4 (00:12→19:51)
[2019-03-13] MEDS: LACTATED RINGERS 1,000 ML IV SCH ×2 (01:08→10:19)
[2019-03-13] MEDS: HYDROmorphone 2 MG/1 ML VIAL IV PRN ×6 (04:50→21:34)
[2019-03-13 05:08] LABS: Basophils % 0.5 % (0.0-0.8); Eosinophils # 0.1 10*3/uL (0.0-0.87); Eosinophils % 0.7 % (0.00-10.9); Hematocrit 28.1 VOL% (42.0-52.0); Hemoglobin 9.3 GM/DL (14.0-18.0); Immature Granulocytes % 3.2 %; Immature Granulocytes Absolute 0.24 #; Lymphocytes # 0.9 10*3/uL (1.4-4.0); Lymphocytes % 11.8 % (21.2-54.2); Mean Corpuscular HGB Conc 33.1 GM/DL (32-36); Mean Corpuscular Volume 100.4 FL (87-102); Monocytes % 9.6 % (1.7-12.7); Neutrophils % 74.2 % (38.7-73.9); Platelet Count 256 T/CUMM (130-400); Red Cell Distribution Width 12.1 % (9.3-17.3); White Blood Count 7.4 T/CUMM (4-12)
[2019-03-13] MEDS: LEVOTHYROXINE 50 MCG TABLET PO SCH (05:34)
[2019-03-13 05:47] LABS: Albumin 2.2 G/DL (3.4-5.0); Bilirubin,Total 1.5 MG/DL (0.2-1.0); Calcium 8.1 MG/DL (8.5-10.1); Osmolality,Calculated 283.1 MOS/KG (273-304); Total Protein 5.9 G/DL (6.4-8.3)
[2019-03-13 05:50] LABS: Risk Ratio 7.29; VLDL CHOLESTEROL 71.8 MG/DL
[2019-03-13] MEDS: OMEGA 3 ACID ETHYL ESTERS 1 GM CAPSULE PO SCH ×2 (08:28→20:21)
[2019-03-13] MEDS: PARoxetine 20 MG TABLET PO SCH (08:29)
[2019-03-13] MEDS: PANTOPRAZOLE 40 MG TABLET PO SCH (08:29)
[2019-03-13] MEDS: busPIRone 15 MG TABLET PO SCH ×2 (08:29→20:21)
[2019-03-13] MEDS: ASPIRIN 325 MG TABLET PO SCH (08:29)
[2019-03-13] MEDS: METOPROLOL TARTRATE 25 MG TABLET PO SCH ×2 (08:29→20:21)
[2019-03-13] MEDS: predniSONE 20 MG TABLET PO SCH (08:29)
[2019-03-13] MEDS: THIAMINE 100 MG TABLET PO SCH (08:30)
[2019-03-13] MEDS: MULTIVITAMIN (CENTRUM) TABLET PO SCH (08:30)
[2019-03-13] MEDS ORDERED: oxyCODONE/ACETAMINOPHEN 5-325 MG TABLET PO PRN (11:47)
[2019-03-13] MEDS: LEVOFLOXACIN 500 MG TABLET PO SCH (12:31)
[2019-03-13] MEDS: EZETIMIBE 10 MG TABLET PO SCH (20:21)
[2019-03-14] MEDS: HYDROmorphone 2 MG/1 ML VIAL IV PRN ×3 (00:39→06:41)
[2019-03-14] MEDS: ALBUTEROL/IPRATROPIUM 3 ML NEB RESP TX SCH ×5 (01:24→19:42)
[2019-03-14] MEDS: LACTATED RINGERS 1,000 ML IV SCH ×3 (03:27→06:51)
[2019-03-14 06:13] LABS: Basophils # 0.1 10*3/uL (0.0-0.2); Eosinophils # 0.1 10*3/uL (0.0-0.87); Eosinophils % 1.4 % (0.00-10.9); Hemoglobin 9.2 GM/DL (14.0-18.0); Immature Granulocytes Absolute 0.16 #; Lymphocytes # 1.2 10*3/uL (1.4-4.0); Lymphocytes % 14.8 % (21.2-54.2); Mean Corpuscular HGB Conc 31.7 GM/DL (32-36); Mean Corpuscular Volume 103.2 FL (87-102); Mean Platelet Volume 10.1 FL (9.6-12.0); Monocytes % 10.2 % (1.7-12.7); Neutrophils % 70.6 % (38.7-73.9); Platelet Count 290 T/CUMM (130-400); Red Blood Count 2.81 MC/CUMM (3.8-5.5); Red Cell Distribution Width 12.3 % (9.3-17.3); White Blood Count 8.1 T/CUMM (4-12)
[2019-03-14 06:33] LABS: Albumin 2.5 G/DL (3.4-5.0); Bilirubin,Total 0.8 MG/DL (0.2-1.0); Calcium 8.7 MG/DL (8.5-10.1); Osmolality,Calculated 274.8 MOS/KG (273-304)
[2019-03-14] MEDS: LEVOTHYROXINE 50 MCG TABLET PO SCH (06:41)
[2019-03-14] MEDS: ASPIRIN 325 MG TABLET PO SCH (08:39)
[2019-03-14] MEDS: MULTIVITAMIN (CENTRUM) TABLET PO SCH (08:40)
[2019-03-14] MEDS: busPIRone 15 MG TABLET PO SCH ×2 (08:40→20:08)
[2019-03-14] MEDS: predniSONE 20 MG TABLET PO SCH (08:40)
[2019-03-14] MEDS: PARoxetine 20 MG TABLET PO SCH (08:40)
[2019-03-14] MEDS: PANTOPRAZOLE 40 MG TABLET PO SCH (08:40)
[2019-03-14] MEDS: METOPROLOL TARTRATE 25 MG TABLET PO SCH ×2 (08:40→20:08)
[2019-03-14] MEDS: THIAMINE 100 MG TABLET PO SCH (08:41)
[2019-03-14] MEDS: OMEGA 3 ACID ETHYL ESTERS 1 GM CAPSULE PO SCH ×2 (08:41→20:09)
[2019-03-14] MEDS: oxyCODONE/ACETAMINOPHEN 5-325 MG TABLET PO PRN ×3 (11:08→19:57)
[2019-03-14] MEDS: EZETIMIBE 10 MG TABLET PO SCH (20:08)
[2019-03-15] MEDS: ALBUTEROL/IPRATROPIUM 3 ML NEB RESP TX SCH ×3 (01:52→13:10)
[2019-03-15] MEDS: oxyCODONE/ACETAMINOPHEN 5-325 MG TABLET PO PRN ×4 (03:39→13:11)
[2019-03-15 05:44] LABS: Albumin 2.3 G/DL (3.4-5.0); Calcium 8.3 MG/DL (8.5-10.1); Osmolality,Calculated 285.1 MOS/KG (273-304)
[2019-03-15] MEDS: LEVOTHYROXINE 50 MCG TABLET PO SCH (06:57)
[2019-03-15] MEDS: MULTIVITAMIN (CENTRUM) TABLET PO SCH (08:23)
[2019-03-15] MEDS: PARoxetine 20 MG TABLET PO SCH (08:23)
[2019-03-15] MEDS: predniSONE 20 MG TABLET PO SCH (08:24)
[2019-03-15] MEDS: PANTOPRAZOLE 40 MG TABLET PO SCH (08:24)
[2019-03-15] MEDS: OMEGA 3 ACID ETHYL ESTERS 1 GM CAPSULE PO SCH (08:24)
[2019-03-15] MEDS: busPIRone 15 MG TABLET PO SCH (08:24)
[2019-03-15] MEDS: ASPIRIN 325 MG TABLET PO SCH (08:24)
[2019-03-15] MEDS: METOPROLOL TARTRATE 25 MG TABLET PO SCH (08:24)
[2019-03-15] MEDS: THIAMINE 100 MG TABLET PO SCH (08:30)
[2019-03-15 12:31] VITALS: BP 113/77
[2019-03-15] MEDS: LEVOFLOXACIN 500 MG TABLET PO SCH (13:11)
[2019-03-15] MEDS ORDERED: COENZYME Q10 100 MG CAPSULE PO SCH (21:00)
[2019-03-15] MEDS ORDERED: OMEGA 3 ACID ETHYL ESTERS 1 GM CAPSULE PO SCH (21:00)
== END 2019-03-15 14:39 | disposition home or self-care (01) | DRG 438 ==
LOC: N.ED 04:43 → SUATTDRO 07:47 → N.EDINP 07:47 → N.CC 08:40 → N.2E 03-10 20:10
PROVIDERS: ADMIT Family Medicine; ATTEND Internal Medicine

== ENCOUNTER 2019-12-27 09:56 | Inpatient (IN) ==
[2019-12-27] MEDS ORDERED: SODIUM CHLORIDE 0.9% 1,000 ML IV STA (10:35)
[2019-12-27] MEDS ORDERED: ONDANSETRON 4 MG/2 ML VIAL IV ONE (10:43)
[2019-12-27] MEDS ORDERED: HYDROmorphone 2 MG/1 ML VIAL IV STA ×2 (10:43→11:09)
[2019-12-27 10:58] LABS: Basophils # 0.1 10*3/uL (0.0-0.2); Basophils % 0.5 % (0.0-0.8); Eosinophils # 0.1 10*3/uL (0.0-0.87); Eosinophils % 0.8 % (0.00-10.9); Hematocrit 43.7 VOL% (42.0-52.0); Hemoglobin 15.7 GM/DL (14.0-18.0); Immature Granulocytes % 0.4 %; Immature Granulocytes Absolute 0.04 #; Lymphocytes # 1.9 10*3/uL (1.4-4.0); Lymphocytes % 18.7 % (21.2-54.2); Mean Corpuscular HGB Conc 35.9 GM/DL (32-36); Monocytes % 5.7 % (1.7-12.7); Neutrophils % 73.9 % (38.7-73.9); Red Blood Count 4.65 MC/CUMM (3.8-5.5); Red Cell Distribution Width 12.7 % (9.3-17.3); White Blood Count 10.3 T/CUMM (4-12)
[2019-12-27 11:00] LABS: Platelet Count 101 T/CUMM (130-400)
[2019-12-27 11:03] LABS: Bilirubin,Urine Negative (Negative); Blood, Urine Small mg/dL (Negative); Glucose,Urine (UA) Negative (Negative); Ketones,Urine 20 mg/dL (Negative); Mucus,Urine Few /LPF (Occasional); Nitrite,Urine Negative (Negative); Protein,Urine 30 MG/DL; RBC,Urine 3 /HPF (0-4); Urine Appearance CLEAR (Clear); Urine Color Yellow (Yellow); WBC,Urine 1 /HPF (0-6)
[2019-12-27 11:18] LABS: Albumin 3.9 G/DL (3.4-5.0); Bilirubin,Total 1.2 MG/DL (0.2-1.0); Calcium 9.9 MG/DL (8.5-10.1); Total Protein 8.2 G/DL (6.4-8.3)
[2019-12-27 11:19] LABS: Barbiturates Screen,Urine Negative (Negative); Benzodiazepines Screen,Urine Negative (Negative); Cannabinoid Screen,Urine Negative (Negative); Opiate Screen,Urine Negative (Negative); Phencyclidine Screen,Urine Negative (Negative)
[2019-12-27 11:19] LABS: Hypochromasia 1+
[2019-12-27] MEDS ORDERED: MORPHINE 4 MG/1 ML VIAL IV STA ×2 (11:48→12:08)
[2019-12-27] MEDS ORDERED: ONDANSETRON 4 MG/2 ML VIAL IV STA (12:07)
[2019-12-27] MEDS ORDERED: BISACODYL 5 MG TABLET PO PRN (12:30)
[2019-12-27] MEDS ORDERED: ACETAMINOPHEN 325 MG TABLET PO PRN (12:30)
[2019-12-27] MEDS ORDERED: DEXTROSE 50% 25 GM/50 ML VIAL IV PRN (12:30)
[2019-12-27] MEDS ORDERED: GLUCAGON 1 MG VIAL IM PRN (12:30)
[2019-12-27] MEDS ORDERED: hydrALAZINE 20 MG/1 ML VIAL IV PRN (12:30)
[2019-12-27] MEDS ORDERED: METHOCARBAMOL 750 MG TABLET PO PRN (12:49)
[2019-12-27 13:05] LABS: PT Patient Result 10.3 SECS (9.8-11.9); Partial Thromboplastin Time 23.6 SECS (23.9-33.8)
[2019-12-27 13:15] LABS: Risk Ratio 2.42; Thyroid Stimulating Hormone 1.28 uIU/ml (0.358-3.74); VLDL CHOLESTEROL 25.8 MG/DL
[2019-12-27] MEDS ORDERED: THIAMINE INJ 100 MG, FOLIC ACID INJ 1 MG, MULTIVITAMIN INJ 10 ML in SODIUM CHLORIDE 0.9... IV ONE (13:30)
[2019-12-27] MEDS ORDERED: ENOXAPARIN 40 MG/0.4 ML SYRINGE SUBCUT SCH (13:30)
[2019-12-27] MEDS: HYDROmorphone 2 MG/1 ML VIAL IV PRN ×3 (13:55→21:34)
[2019-12-27] MEDS: ONDANSETRON 4 MG/2 ML VIAL IV PRN ×3 (15:17→20:56)
[2019-12-27] MEDS ORDERED: amLODIPine 5 MG TABLET PO SCH (16:00)
[2019-12-27] MEDS ORDERED: PNEUMOCOCCAL VACCINE (13 VALENT) 0.5 ML SYRINGE IM ONE (16:55)
[2019-12-27] MEDS ORDERED: INFLUENZA VIRUS VACCINE 0.5 ML SYRINGE IM ONE (16:55)
[2019-12-27] MEDS: SODIUM CHLORIDE 0.9% 1,000 ML IV SCH (18:59)
[2019-12-27] MEDS: chlordiazePOXIDE 25 MG CAPSULE PO SCH ×2 (18:59→23:13)
[2019-12-27] MEDS: METOPROLOL TARTRATE 25 MG TABLET PO SCH (20:53)
[2019-12-28] MEDS: SODIUM CHLORIDE 0.9% 1,000 ML IV SCH ×2 (00:17→14:28)
[2019-12-28] MEDS: HYDROmorphone 2 MG/1 ML VIAL IV PRN ×6 (02:24→23:29)
[2019-12-28] MEDS: ONDANSETRON 4 MG/2 ML VIAL IV PRN ×4 (04:54→23:25)
[2019-12-28 06:41] LABS: Basophils % 0.3 % (0.0-0.8); Eosinophils % 0.5 % (0.00-10.9); Hematocrit 39.9 VOL% (42.0-52.0); Hemoglobin 14.5 GM/DL (14.0-18.0); Immature Granulocytes % 0.5 %; Immature Granulocytes Absolute 0.03 #; Lymphocytes # 0.4 10*3/uL (1.4-4.0); Lymphocytes % 7.1 % (21.2-54.2); Mean Corpuscular HGB Conc 36.3 GM/DL (32-36); Mean Corpuscular Volume 93.7 FL (87-102); Mean Platelet Volume 11.3 FL (9.6-12.0); Monocytes % 5.5 % (1.7-12.7); Neutrophils % 86.1 % (38.7-73.9); Red Blood Count 4.26 MC/CUMM (3.8-5.5); Red Cell Distribution Width 12.5 % (9.3-17.3)
[2019-12-28 06:48] LABS: Platelet Count 47 T/CUMM (130-400)
[2019-12-28 06:49] LABS: Platelet Estimate Decreased
[2019-12-28 07:45] LABS: Calcium 9.2 MG/DL (8.5-10.1); Osmolality,Calculated 266.4 MOS/KG (273-304)
[2019-12-28] MEDS: LEVOTHYROXINE 50 MCG TABLET PO SCH (09:00)
[2019-12-28] MEDS: METOPROLOL TARTRATE 25 MG TABLET PO SCH ×2 (09:00→20:51)
[2019-12-28] MEDS: FOLIC ACID 1 MG TABLET PO SCH (09:00)
[2019-12-28] MEDS: amLODIPine 5 MG TABLET PO SCH (09:00)
[2019-12-28] MEDS: PANTOPRAZOLE 40 MG TABLET PO SCH (09:01)
[2019-12-28] MEDS: THIAMINE 100 MG TABLET PO SCH (09:01)
[2019-12-28] MEDS: PARoxetine 20 MG TABLET PO SCH (09:01)
[2019-12-28] MEDS: MULTIVITAMIN (CENTRUM) TABLET PO SCH (09:01)
[2019-12-28] MEDS: chlordiazePOXIDE 25 MG CAPSULE PO SCH ×4 (09:11→20:52)
[2019-12-28] MEDS: LACTATED RINGERS 1,000 ML IV SCH ×3 (09:12→20:19)
[2019-12-28 15:12] LABS: Albumin 3.3 G/DL (3.4-5.0); Bilirubin,Direct 0.57 MG/DL (0.0-0.20); Bilirubin,Total 1.6 MG/DL (0.2-1.0); Total Protein 6.5 G/DL (6.4-8.3)
[2019-12-29] MEDS: LACTATED RINGERS 1,000 ML IV SCH ×2 (01:09→05:53)
[2019-12-29] MEDS: ONDANSETRON 4 MG/2 ML VIAL IV PRN ×2 (03:38→07:58)
[2019-12-29] MEDS: HYDROmorphone 2 MG/1 ML VIAL IV PRN ×4 (03:42→21:23)
[2019-12-29] MEDS: chlordiazePOXIDE 25 MG CAPSULE PO SCH ×3 (03:57→18:35)
[2019-12-29 06:10] LABS: Basophils % 0.1 % (0.0-0.8); Eosinophils % 0.4 % (0.00-10.9); Hematocrit 37.7 VOL% (42.0-52.0); Hemoglobin 13.7 GM/DL (14.0-18.0); Immature Granulocytes Absolute 0.08 #; Lymphocytes # 0.5 10*3/uL (1.4-4.0); Lymphocytes % 5.6 % (21.2-54.2); Mean Corpuscular HGB Conc 36.3 GM/DL (32-36); Mean Platelet Volume 11.9 FL (9.6-12.0); Neutrophils % 83.9 % (38.7-73.9); Red Blood Count 4.01 MC/CUMM (3.8-5.5); Red Cell Distribution Width 12.4 % (9.3-17.3)
[2019-12-29 06:13] LABS: Platelet Count 46 T/CUMM (130-400)
[2019-12-29 06:24] LABS: Calcium 9.4 MG/DL (8.5-10.1); Osmolality,Calculated 262.4 MOS/KG (273-304)
[2019-12-29 06:28] LABS: Albumin 2.9 G/DL (3.4-5.0); Bilirubin,Total 2.1 MG/DL (0.2-1.0); Calcium 9.7 MG/DL (8.5-10.1); Osmolality,Calculated 258.7 MOS/KG (273-304); Total Protein 6.6 G/DL (6.4-8.3)
[2019-12-29 06:31] LABS: Albumin 2.8 G/DL (3.4-5.0); Bilirubin,Direct 0.8 MG/DL (0.0-0.20); Bilirubin,Indirect 1.4 MG/DL (0.0-1.0); Bilirubin,Total 2.2 MG/DL (0.2-1.0); Total Protein 6.4 G/DL (6.4-8.3)
[2019-12-29 06:43] LABS: Band Neutrophils 1 % (0-10); Hypochromasia 1+; Lymphocytes 5 % (20-55); Microcytosis Slight; Platelet Estimate Decreased; Segmented Neutrophils 87 % (50-85); Total Cells Counted 100
[2019-12-29] MEDS: LEVOTHYROXINE 50 MCG TABLET PO SCH (07:02)
[2019-12-29] MEDS: DEXT 5% LACT RING KCL 20 MEQ 20 MEQ/1,000 ML BAG IV SCH ×2 (07:58→16:10)
[2019-12-29] MEDS: PARoxetine 20 MG TABLET PO SCH (08:02)
[2019-12-29] MEDS: THIAMINE 100 MG TABLET PO SCH (08:02)
[2019-12-29] MEDS: amLODIPine 5 MG TABLET PO SCH (08:02)
[2019-12-29] MEDS: MULTIVITAMIN (CENTRUM) TABLET PO SCH (08:02)
[2019-12-29] MEDS: FOLIC ACID 1 MG TABLET PO SCH (08:02)
[2019-12-29] MEDS: METOPROLOL TARTRATE 25 MG TABLET PO SCH ×2 (08:02→21:22)
[2019-12-29] MEDS: PANTOPRAZOLE 40 MG TABLET PO SCH (08:02)
[2019-12-30] MEDS: DEXT 5% LACT RING KCL 20 MEQ 20 MEQ/1,000 ML BAG IV SCH ×3 (00:41→17:31)
[2019-12-30] MEDS: chlordiazePOXIDE 25 MG CAPSULE PO SCH ×3 (02:50→18:33)
[2019-12-30] MEDS: ONDANSETRON 4 MG/2 ML VIAL IV PRN ×2 (02:51→10:40)
[2019-12-30 05:51] LABS: Basophils % 0.3 % (0.0-0.8); Eosinophils # 0.1 10*3/uL (0.0-0.87); Eosinophils % 1.7 % (0.00-10.9); Hematocrit 33.9 VOL% (42.0-52.0); Hemoglobin 12.3 GM/DL (14.0-18.0); Immature Granulocytes % 0.3 %; Immature Granulocytes Absolute 0.01 #; Lymphocytes # 0.6 10*3/uL (1.4-4.0); Lymphocytes % 20.7 % (21.2-54.2); Mean Corpuscular HGB Conc 36.3 GM/DL (32-36); Mean Corpuscular Volume 95.2 FL (87-102); Mean Platelet Volume 12.4 FL (9.6-12.0); Monocytes % 18.7 % (1.7-12.7); Neutrophils % 58.3 % (38.7-73.9); Red Blood Count 3.56 MC/CUMM (3.8-5.5); Red Cell Distribution Width 12.5 % (9.3-17.3)
[2019-12-30 05:54] LABS: Platelet Count 54 T/CUMM (130-400)
[2019-12-30 06:12] LABS: Calcium 9.1 MG/DL (8.5-10.1); Osmolality,Calculated 267.2 MOS/KG (273-304)
[2019-12-30 06:28] LABS: Band Neutrophils 9 % (0-10); Eosinophils 1 % (0-10); Hypochromasia 1+; Lymphocytes 18 % (20-55); Platelet Estimate Decreased; Segmented Neutrophils 57 % (50-85); Total Cells Counted 100
[2019-12-30 06:29] LABS: Microcytosis Slight
[2019-12-30] MEDS: LEVOTHYROXINE 50 MCG TABLET PO SCH (06:31)
[2019-12-30] MEDS: THIAMINE 100 MG TABLET PO SCH (08:09)
[2019-12-30] MEDS: PANTOPRAZOLE 40 MG TABLET PO SCH (08:10)
[2019-12-30] MEDS: amLODIPine 5 MG TABLET PO SCH (08:10)
[2019-12-30] MEDS: PARoxetine 20 MG TABLET PO SCH (08:10)
[2019-12-30] MEDS: MULTIVITAMIN (CENTRUM) TABLET PO SCH (08:10)
[2019-12-30] MEDS: FOLIC ACID 1 MG TABLET PO SCH (08:10)
[2019-12-30] MEDS: METOPROLOL TARTRATE 25 MG TABLET PO SCH ×2 (08:10→20:37)
[2019-12-30] MEDS: HYDROmorphone 2 MG/1 ML VIAL IV PRN ×3 (08:24→22:16)
[2019-12-30] MEDS: POTASSIUM CHLORIDE 20 MEQ TABLET PO PRN (15:43)
[2019-12-30] MEDS: VANCOMYCIN 50 MG/ML 60 ML/BOTTLE PO SCH ×2 (16:31→18:33)
[2019-12-31] MEDS: VANCOMYCIN 50 MG/ML 60 ML/BOTTLE PO SCH ×3 (00:43→12:15)
[2019-12-31] MEDS: DEXT 5% LACT RING KCL 20 MEQ 20 MEQ/1,000 ML BAG IV SCH ×2 (00:48→08:46)
[2019-12-31] MEDS: HYDROmorphone 2 MG/1 ML VIAL IV PRN ×2 (04:32→06:06)
[2019-12-31 06:02] LABS: Basophils % 0.9 % (0.0-0.8); Eosinophils # 0.1 10*3/uL (0.0-0.87); Eosinophils % 4.4 % (0.00-10.9); Hematocrit 31.1 VOL% (42.0-52.0); Hemoglobin 11.1 GM/DL (14.0-18.0); Immature Granulocytes % 0.4 %; Immature Granulocytes Absolute 0.01 #; Lymphocytes # 0.6 10*3/uL (1.4-4.0); Lymphocytes % 25.2 % (21.2-54.2); Mean Corpuscular HGB Conc 35.7 GM/DL (32-36); Mean Corpuscular Volume 96.3 FL (87-102); Mean Platelet Volume 12.1 FL (9.6-12.0); Monocytes % 25.7 % (1.7-12.7); Neutrophils % 43.4 % (38.7-73.9); Platelet Count 59 T/CUMM (130-400); Red Blood Count 3.23 MC/CUMM (3.8-5.5); Red Cell Distribution Width 12.7 % (9.3-17.3); White Blood Count 2.3 T/CUMM (4-12)
[2019-12-31] MEDS: LEVOTHYROXINE 50 MCG TABLET PO SCH (06:08)
[2019-12-31 06:21] LABS: Bilirubin,Direct 0.66 MG/DL (0.0-0.20); Bilirubin,Indirect 0.4 MG/DL (0.0-1.0); Bilirubin,Total 1.1 MG/DL (0.2-1.0); Osmolality,Calculated 272.8 MOS/KG (273-304); Total Protein 5.4 G/DL (6.4-8.3)
[2019-12-31 06:24] LABS: Bilirubin,Total 1.2 MG/DL (0.2-1.0); Osmolality,Calculated 274.7 MOS/KG (273-304); Total Protein 5.3 G/DL (6.4-8.3)
[2019-12-31 06:36] LABS: Band Neutrophils 5 % (0-10); Eosinophils 4 % (0-10); Hypochromasia 1+; Lymphocytes 30 % (20-55); Microcytosis 1+; Platelet Estimate Decreased; Segmented Neutrophils 45 % (50-85); Total Cells Counted 100
[2019-12-31] MEDS: METOPROLOL TARTRATE 25 MG TABLET PO SCH (08:43)
[2019-12-31] MEDS: PARoxetine 20 MG TABLET PO SCH (08:43)
[2019-12-31] MEDS: POTASSIUM CHLORIDE 20 MEQ TABLET PO PRN (08:43)
[2019-12-31] MEDS: THIAMINE 100 MG TABLET PO SCH (08:44)
[2019-12-31] MEDS: FOLIC ACID 1 MG TABLET PO SCH (08:44)
[2019-12-31] MEDS: PANTOPRAZOLE 40 MG TABLET PO SCH (08:44)
[2019-12-31] MEDS: MULTIVITAMIN (CENTRUM) TABLET PO SCH (08:44)
[2019-12-31] MEDS: amLODIPine 5 MG TABLET PO SCH (08:44)
[2019-12-31] MEDS: ONDANSETRON 4 MG/2 ML VIAL IV PRN (10:02)
[2019-12-31 11:06] VITALS: BP 123/80
[2019-12-31] MEDS ORDERED: PNEUMOCOCCAL VACCINE (13 VALENT) 0.5 ML SYRINGE IM ONE (12:00)
[2019-12-31] MEDS ORDERED: INFLUENZA VIRUS VACCINE 0.5 ML SYRINGE IM ONE (12:00)
== END 2019-12-31 12:30 | disposition home or self-care (01) | DRG 439 ==
LOC: N.ED 09:56 → N.EDINP 12:30 → N.3E 16:30
PROVIDERS: ADMIT Internal Medicine; ATTEND Internal Medicine